=== PATIENT | female | born 1985 | race Caucasian/White ===

== ENCOUNTER 2024-02-14 13:31 | Emergency (ER) | payer OTHER, SELFPAY ==
--- NOTE | ~2024-02-14 | XR_ITS ---
EXAMINATION: [id number] DATE: 02/14/2024 14:00 INDICATION: Left lower anterior chest pain. TECHNIQUE: 2 views of the left ribs on 3 radiographs were obtained. COMPARISON: None. FINDINGS: There is no left-sided pneumonia, pleural effusion, or pneumothorax. The heart size is norm al. There is a fracture of left 11th rib. IMPRESSION: 1. Left 11th rib fracture. Reviewed, dictated and finalized at location A. IMPRESSION: 1. Left 11th rib fracture.
[2024-02-14 13:39] VITALS: BP 152/91; PULSE 92; RESP 16; TEMP 37.2; O2SAT 97
--- NOTE | 2024-02-14 13:49 | ED.GENADULT ---
HPI - General Adult General Chief complaint: Abdominal Pain Stated complaint: Left Flank Pain /Rib Time Seen by Provider: 02/14/24 13:49 Mode of arrival: ambulatory Limitations: no limitations History of Present Illness HPI narrative: 38-year-old female presents with concern for left rib pain. She reports her boyfriend gave her a tight hug and she felt a pop. She reports little pain with rest, pain with deep breathing or moving in certain ways. MD complaint: Rib pain Related Data Home Medications Medication Instructions Recorded Confirmed No Home Medications 02/14/24 02/14/24 Allergies Allergy/AdvReac Type Severity Reaction Status Date / Time metformin AdvReac Nausea Verified 02/14/24 13:51 Review of Systems Review of Systems: CONSTITUTIONAL: Denies malaise, chills, sweats, or fever. EYES: Denies visual changes, redness, or discharge. CARDIOVASCULAR: Denies chest pain, palpitations, or edema. RESPIRATORY: Denies cough or dyspnea. GASTROINTESTINAL: Denies abdominal pain. SKIN: Denies bruising, swelling, redness MUSCULOSKELETAL: Reports left anterior rib pain All systems reviewed & are unremarkable except as noted in HPI and below PMFSH Comments At time of signature, agree with nursing past medical, surgical, social and family history. There is no relevant family history pertinent to the presenting complaint Exam Narrative: GENERAL: Well-appearing, well-nourished, and in no acute distress. HEAD: Normocephalic, atraumatic. EYES: PERRLA, sclera clear ENT: Nares clear. Mucous membranes moist. NECK: Supple. CHEST: No respiratory distress. Clear to auscultation. No bony deformities, no asymmetry. Speaks in full sentences. HEART: Regular rate and rhythm. SKIN: Warm, dry, no visible rash. NEURO: Alert and oriented x3. PSYCH: Normal mood and affect Course Course Emergency Course: Patient is aware of diagnosis, understands and agrees to treatment plan. Anticipatory guidance given. Patient agrees to follow-up as directed and is aware of reasons to seek care at the emergency department. Portions of this record may have been created with voice recognition software Level of Care: Express Care Visit Vital Signs Vital signs: Vital Signs Temperature 99 F 02/14/24 13:39 Pulse Rate 92 02/14/24 13:39 Respiratory Rate 16 02/14/24 13:39 Blood Pressure 152/91 H 02/14/24 13:39 Pulse Oximetry 97 02/14/24 13:39 Oxygen Delivery Room Air 02/14/24 13:39 Temperature 99 F 02/14/24 13:39 Pulse Rate 92 02/14/24 13:39 Respiratory Rate 16 02/14/24 13:39 Blood Pressure 152/91 H 02/14/24 13:39 Pulse Oximetry 97 02/14/24 13:39 Oxygen Delivery Room Air 02/14/24 13:39 Reviewed. Medical Decision Making MDM Narrative Medical decision making narrative: The patient was evaluated by myself in the emergency department. History is obtained from patient who is an independent historian and physical exam was performed.? Available medical records were reviewed at this time. ? Exam findings and imaging show no acute concerns or changes; patient is non-toxic appearing and is in no distress. Patient is appropriate for outpatient treatment and follow-up. ? I have evaluated and discussed social determinants of health with the patient that could potentially impact subsequent diagnosis and treatment plans. ? Differential diagnosis and treatment plan were discussed with the patient. Patient agrees with discussion and after shared medical decision making agrees with plan of care. All questions were answered to the patient's satisfaction. Vital Signs Vital Signs: Vital Signs Temperature 99 F 02/14/24 13:39 Pulse Rate 92 02/14/24 13:39 Respiratory Rate 16 02/14/24 13:39 Blood Pressure 152/91 H 02/14/24 13:39 Pulse Oximetry 97 02/14/24 13:39 Oxygen Delivery Room Air 02/14/24 13:39 Temperature 99 F 02/14/24 13:39 Pulse Rate 92 02/14/24 13:39 Respiratory Rate 1
== END 2024-02-14 14:15 | disposition home or self-care (01) ==
PROVIDERS: Emergency Provider Nurse Practitioner
DX: S22.32XA Fracture of one rib, left side, initial encounter for closed fracture (principal); T14.90XA Injury, unspecified, initial encounter
CPT/HCPCS: 71101; 99203; G0463

== ENCOUNTER 2024-08-16 11:53 | Emergency (ER) | payer OTHER, SELFPAY ==
[2024-08-16 12:07] VITALS: BP 131/80; PULSE 87; RESP 18; TEMP 37; O2SAT 97
--- NOTE | 2024-08-16 12:08 | ED_ITS ---
HPI - Skin/Abscess/Foreign Bdy General Chief complaint: Skin/Abscess/Foreign Body Stated complaint: needs 2 boils looked at(rt shoulder)(left butt) Time Seen by Provider: 08/16/24 12:30 Source: patient and RN notes reviewed Mode of arrival: ambulatory Limitations: dementia History of Present Illness HPI narrative: 39 year old female presents with concern for abscesses. She reports history of frequent abscesses, hydradenitis superativa. She reports she has an abscess on her buttock that is draining. She reports she has 1 on her right shoulder that is not draining. She denies fever, aches, chills, sweats. MD complaint: other (Redness) Related Data Home Medications ?Medication ?Instructions ?Recorded ?Confirmed ?Last Taken ?Type albuterol sulfate 90 mcg/actuation inhalation 08/16/24 Unknown History aerosol inhaler famotidine 08/16/24 Unknown History fluticasone 100 mcg-salmeterol 50 inhalation 08/16/24 Unknown History mcg/dose blistr powdr for inhalation (Advair Diskus) Allergies Allergy/AdvReac Type Severity Reaction Status Date / Time metformin AdvReac Nausea Verified 08/16/24 12:15 Review of Systems Review of Systems: CONSTITUTIONAL: Denies malaise, chills, sweats, or fever. EYES: Denies redness, or discharge. ENT: Denies rhinorrhea, congestion, swollen lips, swollen tongue CARDIOVASCULAR: Denies chest pain, palpitations, or edema. RESPIRATORY: Denies cough or dyspnea. GASTROINTESTINAL: Denies abdominal pain, nausea, vomiting SKIN: Reports a draining abscess on her right buttock and not draining abscess on her right shoulder. Denies vesicles, bullae, numbness, pain beyond proportion MUSCULOSKELETAL: Denies joint pain or myalgia. NEUROLOGIC: Denies headache. All systems reviewed & are unremarkable except as noted in HPI and below PMFSH Comments At time of signature, agree with nursing past medical, surgical, social and family history. There is no relevant family history pertinent to the presenting complaint Exam Narrative: GENERAL: Well-appearing, well-nourished, and in no acute distress. HEAD: Normocephalic, atraumatic. EYES: PERRLA, conjunctivae clear ENT: Mucous membranes moist. NECK: Supple. No lymphadenopathy CHEST: Clear to auscultation. No respiratory distress. HEART: Regular rate and rhythm. SKIN: Warm, dry. Approximately 5 x 3 cm raised fluctuant area of Erythema, induration, tenderness, warmth with sharp margins noted to the right shoulder. No vesicles, bullae, necrosis, ecchymosis, crepitus noted. NEURO: Alert and oriented x3. PSYCH: Normal mood and affect Course Course Emergency Course: Patient is aware of diagnosis, understands and agrees to treatment plan. Anticipatory guidance given. Patient agrees to follow-up as directed and is aware of reasons to seek care at the emergency department. Portions of this record may have been created with voice recognition software Level of Care: Express Care Visit Vital Signs Vital signs: Vital Signs Temperature 98.6 F 08/16/24 12:07 Pulse Rate 87 08/16/24 12:07 Respiratory Rate 18 08/16/24 12:07 Blood Pressure 131/80 08/16/24 12:07 Pulse Oximetry 97 08/16/24 12:07 Oxygen Delivery Room Air 08/16/24 12:07 Temperature 98.6 F 08/16/24 12:07 Pulse Rate 87 08/16/24 12:07 Respiratory Rate 18 08/16/24 12:07 Blood Pressure 131/80 08/16/24 12:07 Pulse Oximetry 97 08/16/24 12:07 Oxygen Delivery Room Air 08/16/24 12:07 Reviewed. Procedures Abscess I/D back: Date of Incision: 08/16/24 Time of Incision: 12:45 Side (if applicable): right Local Anesthetic: lidocaine 2% Amount of anesthesia used (mL): 2 Technique: incised with #11 blade Amount of fluid expressed (mL): 10 Irrigation: Yes Packing used?: none I&D Results: Pus and Other (White matter) MDM - Skin/Abscess/Foreign Bdy MDM Narrative Medical decision making narrative: I evaluated this in the [facility]. History is obtained from patient who is an independent historian and physical exam was performed.? Available medical records were reviewed. ? Exam findings and relevant testing show no acute concerns or changes; patient is non-toxic appearing and is in no distress. No risk factors or findings concerning for epidural abscess, diskitis, vertebral osteomyelitis, cord compression, cauda equina, vertebral fracture or bone malignancy, AAA, or pyelonephritis. Patient instructed to consider further imaging and workup through their primary care physician as an outpatient if symptoms persist. Does not appear at this time to be erythema multiforme, bullous, SJS, TEN; no evidence at this time to suggest RMSF, NSTI, endocarditis or Lyme disease; patient looks well, nontoxic and is tolerating oral intake; no neurologic signs or symptoms; no headache, photophobia or neck pain; afebrile.? Patient does not have history of of penetrating trauma, laceration, blunt trauma, recent surgery, immunosuppression, malignancy, obesity, alcoholism, corticosteroid use.? Discussed the importance of follow-up, patient agrees; question, cellulitis versus necrotizing soft tissue infection versus abscess.?? Patient is appropriate for outpatient treatment and follow-up. Critical Care Time Critical Care Time Critical Care Time: No Discharge Plan Discharge Clinical Impression: Abscess Patient Disposition: Home, Self-Care Condition: Stable Instructions: Abscess Incision and Drainage (DC) Additional Instructions: You have had an abscess drained at [facility]. You may shower - let the soapy water clean your wound, do not scrub it. Keep your wound covered to prevent transmission of infection to other people. Follow up with your primary care physician or in the Emergency Department in 2-3 days for a wound check. Go to the Emergency Department immediately if you develop any of the following symptoms: Fevers, Increased redness or swelling around where your abscess was, Increased pain, or Generalized weakness or vomiting Please Keep the wound covered and dry. Once a day: wash the wound with soap/water, apply bacitracin or neosporin and re-cover the wound. If you have any worsening of symptoms, including severe pain/swelling/numbness/changes in sensation/weakness, redness which expands more than it is right now or any other concerns please return to the ED immediately. Patient Language: Bots[place] Prescriptions: New amoxicillin-pot clavulanate 875-125 mg tablet 1 tablet PO Q12H 10 Days Qty: 20 0RF No Action albuterol sulfate 90 mcg/actuation HFA aerosol inhaler INHALATION fluticasone propion-salmeterol [Advair Diskus] 100-50 mcg/dose blister with device INHALATION famotidine Follow-up/Referrals: PHYSICIAN NOT ON STAFF,NONSTAFF [Primary Care Provider] - Stand Alone Forms: Work/School Release IP Time of Disposition: 13:01
--- OUTSIDE RECORDS SUMMARY | 2024-08-16 12:20 | XMS_ITS | Referral Summary ---
Author Organization [address] Address [address] [place] [id number] Care Team Providers Care Account Executive Sales Representative Name Role Phone Jesús Perez MD Primary Care Provi dina Encounters Date Type Department Care Team Description 07/23/2024 10:00 AM [employer] Clinical Support [facility] Primary Care at [address] [place] [address] Bilateral impacted cerumen (Primary Dx) 07/09/2024 11:30 AM [employer] Office Visit [facility] Primary Care at [address] [place] [address] Jesús Perez MD Elevated blood pressure reading without diagnosis of hypertension (Primary Dx); Bilateral impacted cerumen; Need for tetanus booster; Need for vaccination from Last 3 Months Allergies Active Allergy Reactions Criticality Noted Date Comments Metformin Nausea only Low 01/03/2024 Medications famotidine (PEPCID) 20 mg tablet Take 1 tablet (20 mg total) by mouth 2 (two) times a day Active fluticasone propion-salmeter oL (ADVAIR DISKUS) 100-50 mcg/dose diskus inhalerIndicatio ns:Asthma, unspecified asthma severity, unspecified whether complicated, unspecified whether persistent Inhale 1 puff 2 (two) times a day Rinse mouth with water after use. Do not swallow. 60 each 1 Active albuterol HFA (PROVENTIL HFA,VENTOLIN HFA,PROAIR HFA) 90 mcg/actuation inhalerIndicatio ns:Acute Asthma Attack Inhale 2 puffs every 6 (six) hours as needed for wheezing 1 each 2 Active Active Problems Problem Noted Date Diagnosed Date Bilateral impacted cerumen 07/09/2024 Need for tetanus booster 07/09/2024 Elevated blood pressure read ing without diagnosis of hypertension 05/15/2024 Asthma 04/15/2024 Chronic bronchitis 03/11/2024 Tobacco abuse 03/11/2024 Closed fracture of one rib of left side 03/11/20 Gastroesophageal reflux disease without esophagi tis 03/11/2024 Shortness of breath 03/11/2024 Routine adult health maintenance 03/07/2024 Immunizations Immunization Administration Dates Next Due Influenza, Unspecified 07/09/2024(Deferr ed: Patient Refused),03/28/2023(Deferred: Patient Refused),03/14/2023(Deferred: Patient Refused) Tdap 07/09/2024 Social History Tobacco Use Types Packs/Day Years Used Date Smoking Tobacco: Every Day Cigarettes Tobacco Cessation:Ready to Q uit: Not Asked; Counseling Given: Not Answered PHQ-2 Answer Date Recorded PHQ-2 Total Score (If total score is 3 or more points, staff should administer the PHQ-9) 0 05/28/2024 PHQ-9 Answer Date Recorded PHQ-9 Total Score 0 05/28/2024 Comments Unknown Sex and Gender Information Value Date Recorded Sex Assigned at Not on file Legal Sex Female 9:16 PM CDT Gender Identity Female 02/06/2024 11:47 AM CDT Sexual Orientation Straight 02/06/2024 11 :47 AM CDT Last Filed Vital Signs Vital Sign Reading Time Taken Comments Blood Pressure 122/74 07/09/2024 11:23 AM [employer] Pulse 82 07/09/2024 11:23 AM [employer] Temperature 36.6 C (97.9 F) 07/09/2024 11:23 AM [employer] Respiratory Rate 18 01/03/2024 9:05 AM CDT Oxygen Saturation 94% 07/09/2024 11:23 AM [employer] Inhaled Oxygen Concentration - - Weight 58.5 kg (129 lb) 07/09/2024 11:23 AM [employer] Height 162.6 cm (5' 4 ) 07/09/2024 11:23 AM [employer] Body Mass Index 22.14 07/09/2024 11:23 AM [employer] Plan of Treatment Not on file Insurance [facility] Care Teams Account Executive Sales Representative Relationship Specialty Start Date End Date Jesús Perez MD [address] [address] PCP - General Family Practice 03/11/24
--- OUTSIDE RECORDS SUMMARY | 2024-08-16 12:20 | XMS_ITS | Clinical Summary ---
Author Organization [facility] Address [address] [place] [id number] Care Team Providers Care Foreign Collection Clerk Name Role Phone Jesús Perez MD Primary Care Provi dina Allergies Active Allergy Reactions Criticality Noted Date [...] use. Do not swallow. 60 each 1 4 Active albuterol HFA (PROVENTIL HFA,VENTOLIN HFA,PROAIR HFA) 90 mcg/actuation inhalerIndicatio ns:Acute Asthma Attack Inhale 2 puffs every 6 (six) hours as needed for wheezing 1 each 2 5 Active Active Problems Problem Noted Date Diagnosed Date Bilateral impacted cerumen 07/09/2024 Need for tetanus booster 07/09/2024 Elevated blood pressure read ing without diagnosis of hypertension 05/15/2024 Asthma 04/15/2024 Chronic bronchitis 03/11/2024 Tobacco abuse 03/11/2024 Closed fracture of one rib of left side 03/11/20 24 Gastroesophageal reflux disease without esophagi tis 03/11/2024 Shortness of breath 03/11/2024 Routine adult health maintenance 03/07/2024 Encounters Date Type Department Care Team Description 07/23/2024 10:00 AM APPLICATIONS TESTER Clinical Support [facility] Primary Care at [address] [place] [phone] Bilateral impacted cerumen (Primary Dx) 07/09/2024 11:30 AM APPLICATIONS TESTER Office Visit [facility] Primary Care at [address] [phone] Jesús Perez MD Elevated blood pressure reading without diagnosis of hypertension (Primary Dx); Bilateral impacted cerumen; Need for tetanus booster; Need for vaccination from Last 3 Months Immunizations Immunization Administration Dates Next Due Influenza, Unspecified 07/09/2024(Deferr ed: Patient Refused),03/28/2023(Deferred: Patient Refused),03/14/2023(Deferred: Patient Refused) Tdap 07/09/2024 Surgical History Surgery Date Site/Laterality Comments CYSTECTOMY Social History Tobacco Use Types Packs/Day Years [...] Orientation Straight 02/06/2024 11 :47 AM CDT Obstetrics History Last Filed Vital Signs Vital Sign Reading Time Taken Comments Blood Pressure 122/74 07/09/2024 11:23 AM APPLICATIONS TESTER Pulse 82 07/09/2024 11:23 AM APPLICATIONS TESTER Temperature 36.6 C (97.9 F) 07/09/2024 11:23 AM APPLICATIONS TESTER Respiratory Rate 18 01/03/2024 9:05 AM CDT Oxygen Saturation 94% 07/09/2024 11:23 AM APPLICATIONS TESTER Inhaled Oxygen Concentration - - Weight 58.5 kg (129 lb) 07/09/2024 11:23 AM APPLICATIONS TESTER Height 162.6 cm (5' 4 ) 07/09/2024 11:23 AM APPLICATIONS TESTER Body Mass Index 22.14 07/09/2024 11:23 AM APPLICATIONS TESTER Plan of Treatment Health Maintenance Due Date Last Done Comments Breast Cancer Screening-Mammogram 1984 Cervical Cancer Screening 1984 Hepatitis C Screening 1984 Varicella Vaccines (1 of 2 - 13+ 2-dose series) 02/25/1997 Hepatitis B Screening 02/25/2002 Regular Well Visit/Exam 18-64 02/25/2002 Pneumococcal vaccine <65 (1 of 2 - PCV) 02/25/2003 Influenza Vaccine (#1) 2024 Depression Screening 05/15/2025 05/15/2024, 03/11/2024 DTaP/Tdap/Td Vaccine (2 - Td or Tdap) 07/09/2034 07/09/2024 HPV Vaccines Aged Out No longer eligi ble based on patient's age to complete this topic Insurance [facility] Care Teams Foreign Collection Clerk Relationship Specialty Start Date End Date Jesús Perez MD [address] [address] PCP - General Family Practice 03/11/24
--- OUTSIDE RECORDS SUMMARY | 2024-08-16 12:20 | XMS_ITS | Clinical Summary ---
Author Organization [facility] Address [address] [place] [address] Phone Care Team Providers Care Fiberglass Laminator Name Role Phone Provider, None Primary Care Provider Unavailabl e Allergies Active Allergy Reactions Criticality Noted Date Comments Metformin Nausea 07/03/2024 Medications No known medications Encounters Date Type Department Care Team Description 07/03/2024 8:59 AM APPEALS OFFICER - 07/03/2024 11:22 AM APPEALS OFFICER Emergency [facility] Emergency [address] [place] [address] Bethel Richard, ASHLEY Acute exacerbation of chronic low back pain Discharge Disposition: Discharged to home or Selfcare 07/03/2024 Travel from Last 3 Months Social History Tobacco Use Types Packs/Day Years Used Date Smoking Tobacco: Never Smokeless Tobacco: Never Tobacco Cessation:Counseling Given: Not Answered Comments No Sex and Gender Information Value Date Recorded Sex Assigned at Not on file Legal Sex Female 7:15 AM CDT Gender Identity Not on file Sexual Orientation Not on file Last Filed Vital Signs Vital Sign Reading Time Taken Comments Blood Pressure 193/95 07/03/2024 8:59 AM APPEALS OFFICER Pulse 92 07/03/2024 8:56 AM APPEALS OFFICER Temperature 35.9 C (96.7 F) 07/03/2024 8:56 AM APPEALS OFFICER Respiratory Rate 16 07/03/2024 8:56 AM APPEALS OFFICER Oxygen Saturation 100% 07/03/2024 8:56 AM APPEALS OFFICER Inhaled Oxygen Concentration - - Weight 59 kg (130 lb) 07/03/2024 8:56 AM APPEALS OFFICER Height 162.6 cm (5' 4 ) 07/03/2024 8:56 AM APPEALS OFFICER Body Mass Index 22.31 07/03/2024 8:56 AM APPEALS OFFICER Plan of Treatment Health Maintenance Due Date Last Done Comments Hepatitis C Virus (HCV) Screening 1985 Mammogram 1985 TdaP Immunization 1985 Hepatitis B Immunization (1 of 3 - 19+ 3-dose series) 02/25/2003 Pap Smear 02/25/2005 Cervical Cancer Screening (CCS) 02/25/2014 HPV/Cotest 02/25/2014 Influenza Immunization (#1) 2024 SARS-COV-2 Immunization ( season) 2024 Discussion re Starting/Frequ ency of Mammograms 2024 Respiratory Syncytial Virus (RSV) Immunization (Adult) (1 - 1-dose 75+ series) 02/25/2059 Meningococcal Immunization (ACWY) Aged Out No longer eligible based on patient's age to complete this topic Pneumococcal Immunization Combined Aged Out No longer eligible based on patient's age to complete this topic Rotavirus Immunization Aged Out No lo nger eligible based on patient's age to complete this topic Procedures Procedure Name Priority Date/Time Associated Diagnosis Comments XR LUMBAR SPINE 2 OR 3 VIEWS STAT 07/03/2024 10:33 AM APPEALS OFFICER XR HIP 2 VIEWS UNILATERAL RIGHT STAT 07/03/2024 10:28 AM APPEALS OFFICER from Last 3 Months Results * XR LUMBAR SPINE 2 OR 3 VIEWS (07/03/2024 10:33 AM APPEALS OFFICER) Anatomical Region Laterality Modality Spine, L-spine N/A Digital Radiogra phy 07/03/2024 11:1 3 AM APPEALS OFFICER Impressions 07/03/2024 11:15 AM APPEALS OFFICER IMPRESSION: Mild multilevel lumbar spondylosis without definite evidence of acute fracture or subluxation. Narrative 07/03/2024 11:15 AM APPEALS OFFICER EXAM DESCRIPTION: XR LUMBAR SPINE 2 OR 3 VIEWS REASON FOR STUDY: acute on chronic right sciatica- midline and right low back pain radiating into right down to ankle x 7 years worse x 2-3 days- no injury TECHNIQUE: 3 radiographic view(s) of the lumbar spine. COMPARISON: None FINDINGS: There is no definite evidence of an acute fracture or subluxation involving the lumbar spine. There is a minimal to mild levoscoliotic curvature lumbar spine centered at L4. There are mild multilevel degenerative changes lumbar spine with mild disc space narrowing, minimal endplate osteophytosis, and mild facet arthropathy. The are mild degenerative changes bilateral sacroiliac joints with mild joint space narrowing and mild sclerosis. There are a few phleboliths overlie the pelvis. THIS IS AN ELECTRONICALLY VERIFIED FINAL REPORT 07/03/2024 11:13 AM - Electronically signed by Alisa Guerin D.O. PS: PS Report ID: [id number] Reading Location: [id number] Procedure Note Alisa Guerin DO - 07/03/2024 EXAM DESCRIPTION: XR LUMBAR SPINE 2 OR 3 VIEWS REASON FOR STUDY: acute on chronic right sciatica- midline and right low back pain radiating into right down to ankle x 7 years worse x 2-3 days- no injury TECHNIQUE: 3 radiographic view(s) of the lumbar spine. COMPARISON: None FINDINGS: There is no definite evidence of an acute fracture or subluxation involving the lumbar spine. There is a minimal to mild levoscoliotic curvature lumbar spine centered at L4. There are mild multilevel degenerative changes lumbar spine with mild disc space narrowing, minimal endplate osteophytosis, and mild facet arthropathy. The are mild degenerative changes bilateral sacroiliac joints with mild joint space narrowing and mild sclerosis. There are a few phleboliths overlie the pelvis. THIS IS AN ELECTRONICALLY VERIFIED FINAL REPORT 07/03/2024 11:13 AM - Electronically signed by Alisa Gueirn D.O. PS: PS Report ID: [id number] Reading Location: [id number] IMPRESSION: Mild multilevel lumbar spondylosis without definite evidence of acute fracture or subluxation. Bethel Richard [facility] IMG DIAGNOSTIC ORDER TOÑO Final Result * XR HIP 2 VIEWS UNILATERAL RIGHT (07/03/2024 10:28 AM APPEALS OFFICER) Anatomical Region Laterality Modality LOWER EXTREMITY, hip Right Digital Rad iography 07/03/2024 11:1 1 AM APPEALS OFFICER Impressions 07/03/2024 11:13 AM APPEALS OFFICER IMPRESSION: Mild degenerative changes of the right hip without definite evidence of acute displaced fracture or dislocation. Narrative 07/03/2024 11:13 AM APPEALS OFFICER EXAM DESCRIPTION: XR HIP 2 VIEWS UNILATERAL RIGHT REASON FOR STUDY: chronic right hip pain without injury x 7 years worse x 2-3 days- right hip pain and right low back pain radating into right leg to ankle- Hip pain worse with bending and lifting, coughing, moving from prolonged sitting to standing position, and when standing in one spot. TECHNIQUE: 2 radiographic view(s) of the right hip . COMPARISON: None FINDINGS: There is no definite evidence acute displaced fracture or dislocation the right hip. There are mild degenerative changes right hip with joint space narrowing and mild sclerosis. There are mild degenerative changes of the sacroiliac joint with joint space narrowing and minimal sclerosis. There are few phleboliths noted overlying the pelvis. THIS IS AN ELECTRONICALLY VERIFIED FINAL REPORT 07/03/2024 11:11 AM - Electronically signed by Alisa Guerin D.O. PS: GOSIA Report ID: [id number] Reading Location: [id number] Procedure Note Alisa Guerin DO - 07/03/2024 EXAM DESCRIPTION: XR HIP 2 VIEWS UNILATERAL RIGHT REASON FOR STUDY: chronic right hip pain without injury x 7 years worse x 2-3 days- right hip pain and right low back pain radating into right leg to ankle- Hip pain worse with bending and lifting, coughing, moving from prolonged sitting to standing position, and when standing in one spot. TECHNIQUE: 2 radiographic view(s) of the right hip . COMPARISON: None FINDINGS: There is no definite evidence acute displaced fracture or dislocation the right hip. There are mild degenerative changes right hip with joint space narrowing and mild sclerosis. There are mild degenerative changes of the sacroiliac joint with joint space narrowing and minimal sclerosis. There are few phleboliths noted overlying the pelvis. THIS IS AN ELECTRONICALLY VERIFIED FINAL REPORT 07/03/2024 11:11 AM - Electronically signed by Alisa Guerin D.O. PS: GOSIA Report ID: [id number] Reading Location: [id number] IMPRESSION: Mild degenerative changes of the right hip without definite evidence of acute displaced fracture or dislocation. Bethel Richard PAC IMG DIAGNOSTIC ORDER TOÑO Final Result from Last 3 Months Insurance MEDICAID [place] Care Teams Fiberglass Laminator Relationship Specialty Start Date End Date Provider, None [place] PCP - General 08/23/23
== END 2024-08-16 13:04 | disposition home or self-care (01) ==
PROVIDERS: Emergency Provider Nurse Practitioner
DX: L02.212 Cutaneous abscess of back [any part, except buttock and flank] (principal); I10 Essential (primary) hypertension; K21.9 Gastro-esophageal reflux disease without esophagitis; E28.2 Polycystic ovarian syndrome
CPT/HCPCS: 10060; 99213; G0463; J2003

== ENCOUNTER 2024-09-26 10:11 | Emergency (ER) | payer OTHER, SELFPAY ==
--- NOTE | ~2024-09-26 | XR_ITS ---
XR chest 2V Ordering provider: Kayla Pool NP History: 39 years Female with . cough and dyspnea . Comparison: None. FINDINGS: MEDIASTINUM: The cardiac silhouette is not enlarged. LUNGS: No infiltrates, effusions or pneumothorax. OTHER: No free air under the diaphragm. IMPRESSION: No acute cardiopulmonary pathology. Reviewed, dictated and finalized at location A.
[2024-09-26 10:18] VITALS: PULSE 85; RESP 16; TEMP 36.4; O2SAT 100
--- NOTE | 2024-09-26 10:27 | ED_ITS ---
HPI - URI/Sore Throat General Chief Complaint: Upper Respiratory Infection Stated Complaint: coughing/sore throat/bodyaches Time Seen by Provider: 09/26/24 10:28 Source: patient Mode of arrival: ambulatory Limitations: no limitations History of Present Illness HPI Narrative: 39 year old female who presents to express care wit cough for the past week with wheezing and some shortness of breath for the past 2 days. Patient reports that she had a COVID test 2--3 days ago which was negative. She states that she has never been diagnosed with asthma reports that she has been told she has reactive airway disease. Patient reports that she does use tobacco daily 1 to ppd. Patient reports that she has been using Albuterol and Advair inhalers as prescribed. Patient reports no known fevers chills or sweats. MD elicited complaint: cough and other (wheezing and shortness of breath) Pertinent past history: other (Tobacco abuse) Onset (ago): week(s) (1 week cough and 2 days of wheezing and dyspnea) Consistency: constant Severity: moderate Able to tolerate fluids by mouth: No Treatments prior to arrival: other (inhalers Albuterol and Advair) Related Data Home Medications ?Medication ?Instructions ?Recorded ?Confirmed ?Last Taken ?Type albuterol sulfate 90 mcg/actuation inhalation 08/16/24 Unknown History aerosol inhaler famotidine 08/16/24 Unknown History Allergies Allergy/AdvReac Type Severity Reaction Status Date / Time metformin AdvReac Nausea Verified 09/26/24 10:34 Review of Systems Review of Systems: CONSTITUTIONAL: Reports some malaise, no chills, sweats, or fever. EYES: Denies visual changes, redness, or discharge. ENT: Reports rhinorrhea, congestion, no sinus pain, no otalgia and some sore throat. CARDIOVASCULAR: Denies chest pain, palpitations, or edema. RESPIRATORY: Reports cough with wheezing and states feels some dyspnea? GASTROINTESTINAL: Denies abdominal pain, nausea, vomiting, diarrhea SKIN: Denies rash or itching. MUSCULOSKELETAL: Denies myalgia. NEUROLOGIC: Denies headache. All systems reviewed & are unremarkable except as noted in HPI and below PMFSH Past Medical History Medical History (Updated 09/27/24 @ 13:25 by Kayla Pool NP) Tobacco abuse Hidradenitis PCOS (polycystic ovarian syndrome) Bronchitis Hypertension Social History Social History (Updated 09/27/24 @ 13:26 by Kayla Pool NP) Smoking packs per day: 1 Smoking cigarettes per day: 20.0 Smoking status: Current every day smoker Tobacco type: cigarettes Alcohol intake: current Alcohol use details: social Comments At time of signature, agree with nursing past medical, surgical, social and family history. There is no relevant family history pertinent to the presenting complaint Exam Narrative: GENERAL: Well-appearing, well-nourished, and in no acute distress. HEAD: Normocephalic EYES: PERRLA, conjunctivae clear ENT: Nares clear, turbinates edematous and erythematous, clear discharge. Mucous membranes moist. TM pearly ordonez with dull light reflex bilaterally; no tragal tenderness. Oropharynx erythematous without lesions. Tonsils not enlarged and without exudate, no drooling, no hoarseness, no trismus, uvula midline.some post nasal drainage NECK: Supple. No lymphadenopathy CHEST: Decreased with scattered wheezing, breath sounds equal.+ wheezing, no rhonchi, rales, or stridor. No respiratory distress, speaks in full sentences. dry cough SAO2 100% no tachypnea, reports some feelings of dyspnea, no reactions HEART: Regular rate and rhythm. No murmur heard. SKIN: Warm, dry, no rash. NEURO: Alert and oriented x3. PSYCH: Normal mood and affect Course Course Emergency Course: Patient is aware of diagnosis, understands and agrees to treatment plan.? Anticipatory guidance given.? Patient agrees to follow-up as directed and is aware of reasons to seek care at the emergency department. Portions of this record may have been created with voice recognition software Level of Care: Express Care Visit Vital Signs Vital signs: Vital Signs Temperature 36.4 C 09/26/24 10:18 Pulse Rate 85 09/26/24 10:18 Respiratory Rate 16 09/26/24 10:18 Pulse Oximetry 100 09/26/24 10:18 Oxygen Delivery Room Air 09/26/24 10:18 Temperature 36.4 C 09/26/24 10:18 Pulse Rate 85 09/26/24 10:18 Respiratory Rate 16 09/26/24 10:18 Blood Pressure 162/92 H 09/26/24 11:08 Pulse Oximetry 100 09/26/24 10:18 Oxygen Delivery Room Air 09/26/24 10:18 Reviewed MDM - URI/Sore Throat MDM Narrative Medical decision making narrative: Differential diagnosis considered: Loera virus, strep pharyngitis, allergic rhinitis, upper respiratory tract infection, sinusitis, rhinosinusitis, nasopharyngitis. viral pharyngitis, otitis media, otitis externa, pneumonia, bronchitis, viral cough syndrome, viral syndrome, and influenza.? Exam findings show no acute concerns or changes; patient is non-toxic appearing and is in no distress.? Patient is appropriate for outpatient treatment and follow-up. Differential Diagnosis Differential diagnosis: Likely upper respiratory infection, viral infection, bronchitis and other (reactive airway disease, tobacco abuse) Medical Records Attestation: I reviewed the patient's medical records. Lab Data Attestation: I reviewed the patient's lab results. Imaging Data Attestation: I personally reviewed and interpreted this imaging study as follows: My impression: no acute cardiopulmonary pathology Radiologist's impression: [place] [address] XRay Report Signed Patient: Margy Jolly : 1985 MR#: [id number] Age: 39 Acct:[id number] Loc: [facility] ADM Date: 09/26/24Attending Dr: Ordering Physician: Kayla Pool APRN Date of Service: 09/26/24 Procedure(s): XR chest 2V Accession Number(s): [id number] cc: Kayla Pool APRN; UNKNOWN,DOCTOR~ XR chest 2V Ordering provider: Kayla Pool NP History: 39 years Female with . cough and dyspnea . Comparison: None. FINDINGS: MEDIASTINUM: The cardiac silhouette is not enlarged. LUNGS: No infiltrates, effusions or pneumothorax. OTHER: No free air under the diaphragm. IMPRESSION: No acute cardiopulmonary pathology. Reviewed, dictated and finalized at location A. Please be advised this is a medical document. It is intended for [id number] communication. It is written in medical language and may contain unfamiliar abbreviations or verbiage. Medical documents are intended to carry relevant information, facts as evident, and the clinical opinion of the practitioner at the time of the encounter. This report may have been done utilizing a voice recognition system. Attempts have been made to correct errors. However, there may be uncorrected grammatical, spelling, and recognition errors present. The file time of this note does not necessarily represent the time of service. Dictated By: Beto Geronimo MD 09/26/24 1052 Signed By: <Electronically signed by Beto Geronimo MD in OV> 09/26/24 1053 Critical Care Time Critical Care Time Critical Care Time: No Discharge Plan Discharge Clinical Impression: Bronchitis Patient Disposition: Home Condition: Stable Instructions: Antibiotic Form, Acute Bronchitis (ED) Additional Instructions: Increase fluids especially juices and water Vtqq-gti-[id number] cough and cold medicine of your choice for your symptoms Zyrtec, Claritin or Jessica daily and include Coricidin decongestant Continue your inhaler/nebulizer as directed Steroids as directed--take with food heat to the face 20-30 minutes 4-6 times a day for pain Salt water gargles, throat lozenges or throat sprays as desired Antibiotic as directed--finished the medication If your symptoms persist, change or worsen significantly before you can contact your personal physician then please, without delay, go to the emergency department for further evaluation. Follow-up with PCP in 7-10 days or sooner if needed Follow up with PCP soon in regards to your blood pressure which is elevated above threshold for referral. Blood pressure above 120/80 may indicate pre- hypertension. Quit smoking Patient Language: Irish Prescriptions: New azithromycin 250 mg tablet See Rx Instructions .ROUTE .COMPLEX Qty: 6 0RF Rx Instructions: For 250 mg dose pack: take 500 mg today (day 1), then 250 mg for 4 days (days 2-5) prednisone 20 mg tablet 40 mg PO DAILY 5 Days Qty: 10 0RF No Action albuterol sulfate 90 mcg/actuation HFA aerosol inhaler INHALATION famotidine Follow-up/Referrals: UNKNOWN,DOCTOR [Primary Care Provider] - Time of Disposition: 11:09 Quality [place] Coma Scale Eyes: Open Verbal: Oriented and Alert Motor: Follows Commands Joel Coma Total Score: 15
[2024-09-26 10:32] VITALS: BP 180/98
[2024-09-26 11:08] VITALS: BP 162/92
--- OUTSIDE RECORDS SUMMARY | 2024-09-26 11:22 | XMS_ITS | Clinical Summary ---
Author Organization [address] Address [address] [place] [phone] Care Team Providers Care Electric Milkers Installer Name Role Phone Jesús Perez MD Primary [...] for wheezing 1 each 2 5 Active mupirocin (BACTROBAN) 2 % ointmentIndicati ons:Abscess Apply topically 3 (three) times a day for 10 days 22 g 5 09/16/19 25 sulfamethoxazole -trimethoprim (BACTRIM DS) 800-160 mg per tabletIndication s:Abscess Take 1 tablet by mouth 2 (two) times a day for 7 days 14 tablet 5 09/13/19 25 Active Problems Problem Noted Date Diagnosed Date [...] Encounters Date Type Department Care Team Description 09/10/2024 Patient Self-Triage [facility] [address] [place] [address] Mychart, Generic Provider 09/06/2024 Results Follow-Up [facility] at [address] [place] [address] Colleen Rodriges NP 09/05/2024 12:36 PM CDT - 09/05/2024 11:59 PM CDT Hospital Encounter [address] [address] Abscess Discharge Disposition: Discharge to home or self care 09/05/2024 12:15 PM CDT Office Visit [facility] at [address] [place] [address] Colleen Rodriges, SHANNAN Abscess (Primary Dx) 07/23/2024 10:00 AM LEATHER CURRIER Clinical Support [facility] at [address] [place] [phone] Bilateral impacted cerumen (Primary Dx) 07/09/2024 11:30 AM LEATHER CURRIER Office Visit [facility] at [address] [place] [phone] Jesús Perez MD Elevated blood pressure reading [...] Sign Reading Time Taken Comments Blood Pressure 110/60 09/05/2024 12:13 PM CDT Pulse 94 09/05/2024 12:13 PM CDT Temperature 36.5 C (97.7 F) 09/05/2024 12:13 PM CDT Respiratory Rate 18 09/05/2024 12:13 PM CDT Oxygen Saturation 100% 09/05/2024 12:13 PM CDT Inhaled Oxygen Concentration - - Weight 59 kg (130 lb) 09/05/2024 12:13 PM CDT Height 162.6 cm (5' 4 ) 09/05/2024 12:13 PM CDT Body Mass Index 22.31 09/05/2024 12:13 PM CDT Plan of Treatment Health Maintenance Due Date Last Done Comments Breast Cancer Screening-Mammogram 1984 Cervical Cancer Screening 1984 Hepatitis C Screening 1984 Varicella Vaccines (1 of 2 - 13+ 2-dose series) 02/25/1997 Hepatitis B Screening 02/25/2002 Regular Well Visit/Exam 18-64 02/25/2002 Pneumococcal vaccine <65 (1 of 2 - PCV) 02/25/2003 Influenza Vaccine (Season Ended) 2025 Depression Screening 05/15/2025 05/15/2024, 03/11/2024 DTaP/Tdap/Td Vaccine (2 - Td or Tdap) 07/09/2034 07/09/2024 HPV Vaccines Aged Out No longer eligi ble based on patient's age to complete this topic Procedures Procedure Name Priority Date/Time Associated Diagnosis Comments AEROBIC AND ANAEROBIC CULTURE AND GRAM STAIN Routine 09/05/2024 12:36 PM CDT Abscess from Last 3 Months Results * (ABNORMAL) Aerobic and anaerobic culture and gram stain Abscess Shoulder, right (09/05/2024 12:36 PM CDT) Direct Specimen Exam Stain: No polymorphonuclear leukocytes seen. No organisms seen. Comment:Testing performed by : [facility], [address] [place]., [address] Report Final Report: Few Staphylococcus lugdunensis (.) FLAKITA SANDERS Comment:Testing performed by : [facility], [address] [place]., [address] Organism STAPHYLOCOCCUS LUGDUNENSIS FLAKITA Abscess (Shoulder, right) 09/05/2024 12:36 PM CDT 09/05/2024 10:19 PM CDT Narrative FLAKITA - 09/15/2024 11:51 AM CDT Specimen received on an ESwab. Testing performed by [facility] ([phone]) Specimens submitted from normally sterile body sites will have all bacterial morphotypes identified. Specimens that contain grossly mixed mare and/or are from body sites that are not normally sterile will be examined for Staphylococcus aureus, Pseudomonas aeruginosa, beta-hemolytic strep, vancomycin-resistant Enterococcus, Bacteroides, Parabacteroides, Clostridium perfringens and fungus. If any of these are isolated, the organism will be reported. Current interpretive data was last revised on 2019. Organism Antibiotic Method Susceptibility Staphylococcus lugdunensis Doxycycline (KATHY) INTERPRETATION Susceptible Staphylococcus lugdunensis Linezolid (KATHY) INTERPRETATION Susceptible Staphylococcus lugdunensis Trimethoprim with Sulfamethoxazole (KATHY) INTERPRETATION Susceptible Staphylococcus lugdunensis Clindamycin (KATHY) INTERPRETATION Susceptible Staphylococcus lugdunensis Erythromycin (KATHY) INTERPRETATION Susceptible Staphylococcus lugdunensis Vancomycin (KATHY) INTERPRETATION Susceptible Staphylococcus lugdunensis Oxacillin (KATHY) INTERPRETATION Susceptible Staphylococcus lugdunensis Cefazolin (KATHY) INTERPRETATION Susceptible Staphylococcus lugdunensis Ceftriaxone (KATHY) INTERPRETATION Susceptible us Colleen Rodriges [facility] MICROBIOLOGY - GENERAL ORD ERABLES Final Result FLAKITA SANDERS [id number] Department [place] [address] from Last 3 Months Insurance [facility] Care Teams Electric Milkers Installer Relationship Specialty Start Date End Date Jesús Perez MD [address] [address] PCP - General Family Practice 03/11/24
--- OUTSIDE RECORDS SUMMARY | 2024-09-26 11:22 | XMS_ITS | Clinical Summary ---
Author Organization [facility] Address [address] [place] [address] Phone Care Team Providers Care Carver And Checkerer Specials Name Role Phone Provider, None Primary Care Provider Unavailabl e Allergies Active Allergy Reactions Criticality Noted Date Comments Metformin Nausea 07/03/2024 Medications No known medications Encounters Date Type Department Care Team Description 07/03/2024 8:59 AM FILING WRITER - 07/03/2024 11:22 AM FILING WRITER Emergency [facility] Emergency [address] [place] [address] Bethel Richard, ASHLEY Acute exacerbation [...] Comments Blood Pressure 193/95 07/03/2024 8:59 AM FILING WRITER Pulse 92 07/03/2024 8:56 AM FILING WRITER Temperature 35.9 C (96.7 F) 07/03/2024 8:56 AM FILING WRITER Respiratory Rate 16 07/03/2024 8:56 AM FILING WRITER Oxygen Saturation 100% 07/03/2024 8:56 AM FILING WRITER Inhaled Oxygen Concentration - - Weight 59 kg (130 lb) 07/03/2024 8:56 AM FILING WRITER Height 162.6 cm (5' 4 ) 07/03/2024 8:56 AM FILING WRITER Body Mass Index 22.31 07/03/2024 8:56 AM FILING WRITER Plan of Treatment Health Maintenance Due Date [...] OR 3 VIEWS STAT 07/03/2024 10:33 AM FILING WRITER XR HIP 2 VIEWS UNILATERAL RIGHT STAT 07/03/2024 10:28 AM FILING WRITER from Last 3 Months Results * XR LUMBAR SPINE 2 OR 3 VIEWS (07/03/2024 10:33 AM FILING WRITER) Anatomical Region Laterality Modality Spine, L-spine N/A Digital Radiogra phy 07/03/2024 11:1 3 AM FILING WRITER Impressions 07/03/2024 11:15 AM FILING WRITER IMPRESSION: Mild multilevel lumbar spondylosis without definite evidence of acute fracture or subluxation. Narrative 07/03/2024 11:15 AM FILING WRITER EXAM DESCRIPTION: XR LUMBAR SPINE 2 OR [...] Alisa Guerin D.O. PS: PS Report ID: [id number] Reading Location: [id number] Procedure Note Alisa Guerin DO - 07/03/2024 [...] Alisa Guerin D.O. PS: PS Report ID: [id number] Reading Location: [id number] IMPRESSION: Mild multilevel lumbar spondylosis without definite evidence of acute fracture or subluxation. Bethel Richard [facility] IMG DIAGNOSTIC ORDER TOÑO Final Result * XR HIP 2 VIEWS UNILATERAL RIGHT (07/03/2024 10:28 AM FILING WRITER) Anatomical Region Laterality Modality LOWER EXTREMITY, hip Right Digital Rad iography 07/03/2024 11:1 1 AM FILING WRITER Impressions 07/03/2024 11:13 AM FILING WRITER IMPRESSION: Mild degenerative changes of the right hip without definite evidence of acute displaced fracture or dislocation. Narrative 07/03/2024 11:13 AM FILING WRITER EXAM DESCRIPTION: XR HIP 2 VIEWS UNILATERAL [...] Alisa Guerin D.O. PS: GOSIA Report ID: [id number] Reading Location: [id number] Procedure Note Alisa Guerin DO - 07/03/2024 [...] Alisa Guerin D.O. PS: GOSIA Report ID: [id number] Reading Location: [id number] IMPRESSION: Mild degenerative changes of the right hip without definite evidence of acute displaced fracture or dislocation. Bethel Richard PAC IMG DIAGNOSTIC ORDER TOÑO Final Result from Last 3 Months Insurance MEDICAID [place] Care Teams Carver And Checkerer Specials Relationship Specialty Start Date End Date Provider, None [place] PCP - General 08/23/23
--- OUTSIDE RECORDS SUMMARY | 2024-09-26 11:22 | XMS_ITS | Referral Summary ---
Author Organization [facility] [address] Address [address] [place] [address] Care Team Providers Care Consulting Database Administrator Name Role Phone Jesús Perez MD Primary Care Provi dina Encounters Date Type Department Care Team Description 09/10/2024 Patient Self-Triage [facility] HealthCare/ Physicians [address] [place] [address] Mychart, Generic Provider 09/06/2024 Results Follow-Up [facility] Care at [address] [place] [address] Colleen Rodriges NP 09/05/2024 12:36 PM CDT - 09/05/2024 11:59 PM CDT Hospital Encounter [facility] [address] [place] [address] Abscess Discharge Disposition: Discharge to home or self care 09/05/2024 12:15 PM CDT Office Visit [facility] Care at [address] [place] [address] Colleen Rodriges NP Abscess (Primary Dx) 07/23/2024 10:00 AM MICROBIOLOGY INSTRUCTOR Clinical Support [facility] Primary Care at [address] [address] Bilateral impacted cerumen (Primary Dx) 07/09/2024 11:30 AM MICROBIOLOGY INSTRUCTOR Office Visit [facility] Primary Care at [address] [place] [address] Jesús Perez MD Elevated blood pressure reading [...] 09/05/2024 12:13 PM CDT Plan of Treatment Not on file Procedures Procedure Name Priority Date/Time Associated Diagnosis Comments AEROBIC AND ANAEROBIC CULTURE AND GRAM STAIN Routine 09/05/2024 12:36 PM CDT Abscess from Last 3 Months Results * (ABNORMAL) Aerobic and anaerobic culture and gram stain Abscess Shoulder, right (09/05/2024 12:36 PM CDT) Direct Specimen Exam Stain: No polymorphonuclear leukocytes seen. No organisms seen. Comment:Testing performed by : [facility], [address] [facility], [place]., [address] Report Final Report: Few Staphylococcus lugdunensis (.) FLAKITA SANDERS Comment:Testing performed by : [facility], [address] [facility], [place]., [address] Organism STAPHYLOCOCCUS LUGDUNENSIS FLAKITA SANDERS Abscess (Shoulder, right) 09/05/2024 12:36 PM CDT 09/05/2024 10:19 PM CDT Narrative FLAKITA SANDERS - 09/15/2024 11:51 AM CDT Specimen received on an ESwab. Testing performed by [facility] Microbiology Laboratory ([phone]) Specimens submitted from normally sterile body sites [...] Ceftriaxone (KATHY) INTERPRETATION Susceptible us Colleen Rodriges NP LAB MICROBIOLOGY - GENERAL ORD ERABLES Final Result FLAKITA [id number] Department of [place] [address] from Last 3 Months Insurance [facility] Care Teams Consulting Database Administrator Relationship Specialty Start Date End Date Jesús Perez MD [address] [address] PCP - General Family Practice 03/11/24
== END 2024-09-26 11:22 | disposition home or self-care (01) ==
PROVIDERS: Emergency Provider Registered Nurse
DX: J40 Bronchitis, not specified as acute or chronic (principal); I10 Essential (primary) hypertension; F17.210 Nicotine dependence, cigarettes, uncomplicated
CPT/HCPCS: 71046; 99213; G0463

== ENCOUNTER 2024-10-04 13:48 | Emergency (ER) | payer OTHER, SELFPAY ==
--- NOTE | ~2024-10-04 | XR_ITS ---
XR foot RT 2V 10/04/2024 14:15 Indication: Right foot pain Procedure: 2 views right foot Comparison: No prior studies for comparison. Findings: There is anatomic alignment. No fracture, subluxation or dislocation. There is degenerative calcaneal enthesophyte at the plantar surface. Lisfranc joint intact. Impression: 1: No acute bone or joint abnormality. Reviewed, dictated and finalized at location A. Impression: 1: No acute bone or joint abnormality.
[2024-10-04 13:52] VITALS: BP 150/90; PULSE 74; RESP 16; TEMP 36.7; O2SAT 99
--- NOTE | 2024-10-04 14:01 | ED_ITS ---
HPI - General Adult General Chief complaint: Extremity Problem,Nontraumatic Stated complaint: right foot pain Time Seen by Provider: 10/04/24 14:02 Source: patient, RN notes reviewed and old records reviewed Mode of arrival: ambulatory Limitations: no limitations History of Present Illness HPI narrative: 39 year old female who presents to [facility] care with complaints of right heel pain plantar region and radiates down the foot to ball of foot. Patient reports that she has had similar symptoms like this in the past and Tylenol, Ibuprofen, has not provided hr any relief, She has not applied any ice to her foot either. Patient reports that she is on her feet a lot and works 2 jobs. Patient describes pain to heel as sharp at times and then some burning in the plantar aspect of mid foot and ball of foot. Patient wearing supportive non skid shoes. MD complaint: right heel pain radiating to foot plantar aspect Onset (ago): day(s) (3) Location: right and lower extremity Severity scale (1-10): 8 Quality: burning (plantar area) and aching Pain Consistency: intermittent Relieving factors: rest Exacerbating factors: other (weight bearing) Treatments prior to arrival: none Related Data Home Medications ?Medication ?Instructions ?Recorded ?Confirmed ?Last Taken ?Type albuterol sulfate 90 mcg/actuation inhalation 08/16/24 Unknown History aerosol inhaler famotidine 08/16/24 Unknown History fluticasone 100 mcg-salmeterol 50 inhalation 10/04/24 Unknown History mcg/dose blistr powdr for inhalation (Advair Diskus) Allergies Allergy/AdvReac Type Severity Reaction Status Date / Time metformin AdvReac Nausea Verified 10/04/24 13:57 Review of Systems Review of Systems: CONSTITUTIONAL: Denies fever, chills, or sweats. EYES: Denies visual changes, redness, or discharge. ENT: Denies rhinorrhea, congestion, sore throat, or otalgia. CARDIOVASCULAR: Denies chest pain, palpitations, or edema. RESPIRATORY: Denies cough or dyspnea. GASTROINTESTINAL: Denies abdominal pain, nausea, vomiting, or diarrhea. GENITOURINARY: Denies dysuria or hematuria. SKIN: Denies rash or itching. MUSCULOSKELETAL: Denies back pain,positive for right heel pain radiating plantar aspect of foot, or myalgia. NEUROLOGIC: Denies headache, numbness, or weakness. PSYCHIATRIC: Denies anxiety or depression. All systems reviewed & are unremarkable except as noted in HPI and below PMFSH Past Medical History Medical History Tobacco abuse Hidradenitis PCOS (polycystic ovarian syndrome) Bronchitis Hypertension Social History Social History Smoking packs per day: 1 Smoking cigarettes per day: 20.0 Smoking status: Current every day smoker Tobacco type: cigarettes Alcohol intake: current Alcohol use details: social Comments At time of signature, agree with nursing past medical, surgical, social and family history. There is no relevant family history pertinent to the presenting complaint Exam Narrative: GENERAL: Well-appearing, well-nourished, and in no acute distress. HEAD: Normocephalic, atraumatic. EYES: PERRLA and EOMI. ENT: Nares clear, no rhinorrhea or epistaxis. Mucous membranes moist.TM's normal, throat pink without swelling NECK: Supple. no lymphadenopathy CHEST: Clear to auscultation. No respiratory distress. SAO2 99% on room air HEART: Regular rate and rhythm. No murmur heard. Normal peripheral pulses. ABDOMEN: Soft, nontender, nondistended, normal active bowel sounds. EXTREMITIES: Normal range of motion. No edema.pain to right heel region radiating down plantar aspect of foot into ball of foot. strong pedal pulse present, full mobility of right foot SKIN: Warm, dry, no rash. NEURO: No focal deficits. Alert and oriented x3. Course Course Emergency Course: Patient is aware of diagnosis, understands and agrees to treatment plan.? Anticipatory guidance given.? Patient agrees to follow-up as directed and is aware of reasons to seek care at the emergency department. Portions of this record may have been created with voice recognition software Level of Care: Express Care Visit Vital Signs Vital signs: Vital Signs Temperature 36.7 C 10/04/24 13:52 Pulse Rate 74 10/04/24 13:52 Respiratory Rate 16 10/04/24 13:52 Blood Pressure 150/90 H 10/04/24 13:52 Pulse Oximetry 99 10/04/24 13:52 Oxygen Delivery Room Air 10/04/24 13:52 Temperature 36.7 C 10/04/24 13:52 Pulse Rate 74 10/04/24 13:52 Respiratory Rate 16 10/04/24 13:52 Blood Pressure 150/90 H 10/04/24 13:52 Pulse Oximetry 99 10/04/24 13:52 Oxygen Delivery Room Air 10/04/24 13:52 Reviewed Medical Decision Making MDM Narrative Medical decision making narrative: Exam findings and imaging show no acute concerns or changes; patient is non- toxic appearing and is in no distress.? Patient is appropriate for outpatient treatment and follow-up Vital Signs Vital Signs: Vital Signs Temperature 36.7 C 10/04/24 13:52 Pulse Rate 74 10/04/24 13:52 Respiratory Rate 16 10/04/24 13:52 Blood Pressure 150/90 H 10/04/24 13:52 Pulse Oximetry 99 10/04/24 13:52 Oxygen Delivery Room Air 10/04/24 13:52 Temperature 36.7 C 10/04/24 13:52 Pulse Rate 74 10/04/24 13:52 Respiratory Rate 16 10/04/24 13:52 Blood Pressure 150/90 H 10/04/24 13:52 Pulse Oximetry 99 10/04/24 13:52 Oxygen Delivery Room Air 10/04/24 13:52 reviewed Imaging Data Attestation: I personally reviewed and interpreted this imaging study as follows: My impression: no acute bone or joint abnormality, degenerate calcaneal enthesophyte at plantar surface Radiologist's impression: [place] [id number] XRay Report Signed Patient: Margy Jolly : 1985 MR#: [id number] Age: 39 Acct:[id number] Loc: [facility] ADM Date: 10/04/24Attending Dr: Ordering Physician: Kayla Pool APRN Date of Service: 10/04/24 Procedure(s): XR foot RT 2V Accession Number(s): [id number] cc: Kayla Pool APRN; UNKNOWN,DOCTOR~ XR foot RT 2V 10/04/2024 14:15 Indication: Right foot pain Procedure: 2 views right foot Comparison: No prior studies for comparison. Findings: There is anatomic alignment. No fracture, subluxation or dislocation. There is degenerative calcaneal enthesophyte at the plantar surface. Lisfranc joint intact. Impression: 1: No acute bone or joint abnormality. Reviewed, dictated and finalized at location A. Please be advised this is a medical document. It is intended for [id number]-ohvp communication. It is written in medical language and may contain unfamiliar abbreviations or verbiage. Medical documents are intended to carry relevant information, facts as evident, and the clinical opinion of the practitioner at the time of the encounter. This report may have been done utilizing a voice recognition system. Attempts have been made to correct errors. However, there may be uncorrected grammatical, spelling, and recognition errors present. The file time of this note does not necessarily represent the time of service. Dictated By: Eugenio Suero MD 10/04/24 1423 Signed By: <Electronically signed by Eugenio Suero MD in OV> Critical Care Time Critical Care Time Critical Care Time: No Discharge Plan Discharge Clinical Impression: Plantar fasciitis of right foot, Bone spur of foot Patient Disposition: Home Condition: Stable Instructions: Antibiotic Form, Plantar Fasciitis (ED), Plantar Fasciitis Exercises (ED) Additional Instructions: Tylenol for lesser pain Ibuprofen regularly for the next 2-3 days for the inflammation Tylenol arthritis strength 2 tabs in a.m. and 2 tabs in p.m. Naprosyn 500 mg with food twice daily Follow-up with equipment operator intermodal yard per referral by your PCP Follow-up with PCP if further problems or concerns Ice to the area 20-30 minutes 4-6 times a day Elevate above heart Prednisone 20 mg b.i.d. for 5 days Follow-up with your PCP for further evaluation Do exercises as prescribed If your symptoms persist, change or worsen significantly before you can contact your personal physician then please, without delay, go to the emergency department for further evaluation. Follow-up with PCP in 7-10 days or sooner if needed Follow up with PCP soon in regards to your blood pressure which is elevated above threshold for referral. Blood pressure above 120/80 may indicate pre- hypertension. Blood pressure 150/90 Patient Language: Togolese Prescriptions: New prednisone 20 mg tablet 20 mg PO BID Qty: 10 0RF naproxen [Naprosyn] 500 mg tablet 500 mg PO BID PRN (Reason: pain) Qty: 20 0RF No Action prednisone 20 mg tablet 40 mg PO DAILY 5 Days Qty: 10 0RF fluticasone propion-salmeterol [Advair Diskus] 100-50 mcg/dose blister with device INHALATION albuterol sulfate 90 mcg/actuation HFA aerosol inhaler INHALATION famotidine Follow-up/Referrals: UNKNOWN,DOCTOR [Primary Care Provider] - Stand Alone Forms: Work/School Release IP Time of Disposition: 14:36 Quality Joel Coma Scale Eyes: Open Verbal: Oriented and Alert Motor: Follows Commands [place] Coma Total Score: 15
--- OUTSIDE RECORDS SUMMARY | 2024-10-05 14:10 | XMS_ITS | Referral Summary ---
Author Organization [facility] Address [address] [place] [address] Care Team Providers Care Polystyrene Molding Machine Tender Name Role Phone Jesús Perez MD Primary Care Provi dina Encounters Date Type Department Care Team Description 09/10/2024 Patient Self-Triage [facility] HealthCare/ Physicians [address] [place] [address] Mychart, Generic Provider 09/06/2024 Results Follow-Up [facility] Care at [address] [place] [address] Colleen Rodriges NP 09/05/2024 12:36 PM CDT - 09/05/2024 11:59 PM CDT Hospital Encounter [facility] [address] [place] [address] Abscess Discharge Disposition: Discharge to home or self care 09/05/2024 12:15 PM CDT Office Visit [facility] Care at [address] [place] [address] Colleen Rodriges NP Abscess (Primary Dx) 07/23/2024 10:00 AM DIP BRAZIER Clinical Support [facility] Primary Care at [address] [address] Bilateral impacted cerumen (Primary Dx) 07/09/2024 11:30 AM DIP BRAZIER Office Visit [facility] Primary Care at [address] [place] [address] Jesús Perez MD Elevated blood pressure reading [...] No organisms seen. Comment:Testing performed by : [facility], [address] [facility], [place]., [address] Report Final Report: Few Staphylococcus lugdunensis (.) FLAKITA SANDERS Comment:Testing performed by : [facility], [address] [facility], [place]., [address] Organism STAPHYLOCOCCUS LUGDUNENSIS FLAKITA SANDERS Abscess (Shoulder, right) 09/05/2024 12:36 PM CDT 09/05/2024 10:19 PM CDT Narrative FLAKITA SANDERS - 09/15/2024 11:51 AM CDT Specimen received on an ESwab. Testing performed by [facility] Microbiology Laboratory ([phone]) Specimens submitted from normally sterile body sites [...] - GENERAL ORD ERABLES Final Result FLAKITA [id number] Department [place] [address] from Last 3 Months Insurance [facility] Care Teams Polystyrene Molding Machine Tender Relationship Specialty Start Date End Date Jesús Perez MD [address] [address] PCP - General Family Practice 03/11/24
--- OUTSIDE RECORDS SUMMARY | 2024-10-05 14:10 | XMS_ITS | Clinical Summary ---
Author Organization [facility] Address [address] [place] [address] Phone Care Team Providers Care Uptwister Tender Name Role Phone Provider, None Primary Care Provider Unavailabl e Allergies Active Allergy Reactions Criticality Noted Date Comments Metformin Nausea 07/03/2024 Medications No known medications Social History Tobacco Use Types Packs/Day Years [...] Comments Blood Pressure 193/95 07/03/2024 8:59 AM FISH INSPECTOR Pulse 92 07/03/2024 8:56 AM FISH INSPECTOR Temperature 35.9 C (96.7 F) 07/03/2024 8:56 AM FISH INSPECTOR Respiratory Rate 16 07/03/2024 8:56 AM FISH INSPECTOR Oxygen Saturation 100% 07/03/2024 8:56 AM FISH INSPECTOR Inhaled Oxygen Concentration - - Weight 59 kg (130 lb) 07/03/2024 8:56 AM FISH INSPECTOR Height 162.6 cm (5' 4 ) 07/03/2024 8:56 AM FISH INSPECTOR Body Mass Index 22.31 07/03/2024 8:56 AM FISH INSPECTOR Plan of Treatment Health Maintenance Due Date Last Done Comments Hepatitis C Virus (HCV) Screening 1985 Mammogram 1985 TdaP Immunization 1985 Hepatitis B Immunization (1 of 3 - 19+ 3-dose series) 02/25/2003 Pap Smear 02/25/2005 Cervical Cancer Screening (CCS) 02/25/2014 HPV/Cotest 02/25/2014 Influenza Immunization (#1) 2024 SARS-COV-2 Immunization (2023- season) 2024 Discussion re Starting/Frequ ency of [...] patient's age to complete this topic Insurance MEDICAID [place] Care Teams Uptwister Tender Relationship Specialty Start Date End Date Provider, None [place] PCP - General 08/23/23
--- OUTSIDE RECORDS SUMMARY | 2024-10-05 14:10 | XMS_ITS | Clinical Summary ---
Author Organization [address] Address [address] [place] [address] Care Team Providers Care Assistant Offset Press Operator Name Role Phone Jesús Perez MD Primary [...] Department Care Team Description 09/10/2024 Patient Self-Triage [facility] Health[facility] Physicians [address] [place] [address] Mychart, Generic Provider 09/06/2024 Results Follow-Up [facility] Care at [address] [address] Colleen Rodriges NP 09/05/2024 12:36 PM CDT - 09/05/2024 11:59 PM CDT Hospital Encounter [address] [address] Abscess Discharge Disposition: Discharge to home or self care 09/05/2024 12:15 PM CDT Office Visit [facility] Care at [address] [place] [address] Colleen Rodriges, SHANNAN Abscess (Primary Dx) 07/23/2024 10:00 AM KINDERGARTEN TEACHER Clinical Support [facility] Primary Care at [address] [place] [phone] Bilateral impacted cerumen (Primary Dx) 07/09/2024 11:30 AM KINDERGARTEN TEACHER Office Visit [facility] Primary Care at [address] [place] [phone] Jesús Perez MD Elevated blood pressure reading [...] No organisms seen. Comment:Testing performed by : [facility], [address] [place]., [address] Report Final Report: Few Staphylococcus lugdunensis (.) FLAKITA SANDERS Comment:Testing performed by : [facility], [address] [place]., [address] Organism STAPHYLOCOCCUS LUGDUNENSIS [facility] Abscess (Shoulder, right) 09/05/2024 12:36 PM CDT 09/05/2024 10:19 PM CDT Narrative FLAKITA - 09/15/2024 11:51 AM CDT Specimen received on an ESwab. Testing performed by [facility] Microbiology Laboratory ([phone]) Specimens submitted from normally sterile body sites [...] Ceftriaxone (KATHY) INTERPRETATION Susceptible us Colleen Rodriges HOIST WORKER LAB MICROBIOLOGY - GENERAL ORD ERABLES Final Result FLAKITA SANDERS [id number] Department [place] [address] from Last 3 Months Insurance [facility] Care Teams Assistant Offset Press Operator Relationship Specialty Start Date End Date Jesús Perez MD [address] [address] PCP - General Family Practice 03/11/24
== END 2024-10-04 14:45 | disposition home or self-care (01) ==
PROVIDERS: Emergency Provider Registered Nurse
DX: M72.2 Plantar fascial fibromatosis (principal); M77.31 Calcaneal spur, right foot; F17.210 Nicotine dependence, cigarettes, uncomplicated; E28.2 Polycystic ovarian syndrome; I10 Essential (primary) hypertension
CPT/HCPCS: 73620; 99213; G0463

== ENCOUNTER 2024-11-11 08:43 | Emergency (ER) | payer OTHER, SELFPAY ==
--- NOTE | 2024-11-11 08:45 | ED_ITS ---
HPI - Skin/Abscess/Foreign Bdy General Chief complaint: Skin/Abscess/Foreign Body Stated complaint: Boil on Neck Time Seen by Provider: 11/11/24 08:50 Source: patient and RN notes reviewed Mode of arrival: ambulatory Limitations: dementia History of Present Illness HPI narrative: 39-year-old female presents with concern for an abscess on her right neck. She reports she has had a cyst there for many years that never caused her problems and within the last 1 and half weeks it has become inflamed and painful. She reports history of hydradenitis suprativa. Pain she denies fever MD complaint: abscess/boil Related Data Home Medications ?Medication ?Instructions ?Recorded ?Confirmed ?Last Taken ?Type albuterol sulfate 90 mcg/actuation inhalation 08/16/24 Unknown History aerosol inhaler famotidine 08/16/24 Unknown History fluticasone 100 mcg-salmeterol 50 inhalation 10/04/24 Unknown History mcg/dose blistr powdr for inhalation (Advair Diskus) Allergies Allergy/AdvReac Type Severity Reaction Status Date / Time metformin AdvReac Nausea Verified 10/04/24 13:57 Review of Systems Review of Systems: CONSTITUTIONAL: Denies malaise, chills, sweats, or fever. EYES: Denies redness, or discharge. ENT: Denies rhinorrhea, congestion, swollen lips, swollen tongue CARDIOVASCULAR: Denies chest pain, palpitations, or edema. RESPIRATORY: Denies cough or dyspnea. GASTROINTESTINAL: Denies abdominal pain, nausea, vomiting SKIN: Reports a boil on her right neck. Denies purulent drainage, vesicles, bullae, numbness, pain beyond proportion MUSCULOSKELETAL: Denies joint pain or myalgia. NEUROLOGIC: Denies headache. All systems reviewed & are unremarkable except as noted in HPI and below [facility] Past Medical History Medical History Tobacco abuse Hidradenitis PCOS (polycystic ovarian syndrome) Bronchitis Hypertension Social History Social History Smoking packs per day: 1 Smoking cigarettes per day: 20.0 Smoking status: Current every day smoker Tobacco type: cigarettes Alcohol intake: current Alcohol use details: social Comments At time of signature, agree with nursing past medical, surgical, social and family history. There is no relevant family history pertinent to the presenting complaint Exam Narrative: GENERAL: Well-appearing, well-nourished, and in no acute distress. HEAD: Normocephalic, atraumatic. EYES: PERRLA, conjunctivae clear ENT: Mucous membranes moist. NECK: Supple. No lymphadenopathy CHEST: Clear to auscultation. No respiratory distress. HEART: Regular rate and rhythm. SKIN: Warm, dry. Raised, fluctuant erythematous, indurated,, tender, warmth with sharp margins noted right neck. No vesicles, bullae, necrosis, ecchymosis, crepitus noted. NEURO: Alert and oriented x3. PSYCH: Normal mood and affect Course Course Emergency Course: Patient is aware of diagnosis, understands and agrees to treatment plan. Anti cipatory guidance given. Patient agrees to follow-up as directed and is aware of reasons to seek care at the emergency department. Portions of this record may have been created with voice recognition software Level of Care: Express Care Visit Vital Signs Vital signs: Reviewed. Procedures Abscess I/D neck: Date of Incision: 11/11/24 Time of Incision: 09:10 Side (if applicable): right Local Anesthetic: lidocaine 1% Amount of anesthesia used (mL): 2 Technique: needle aspiration Amount of fluid expressed (mL): 6 Irrigation: No Packing used?: none I&D Results: Pus Abcess I&D Additional Comments: Needle aspiration used rather than incision with 11 blade due to the delicate area of the abscess. Because of the delicate area, it was not completely excised, patient was advised to follow-up with her primary care doctor for further treatment of this area. Antibiotic prescribed. MDM - Skin/Abscess/Foreign Bdy MDM Narrative Medical decision making narrative: I evaluated this in the express care. History is obtained from patient who is an independent historian and physical exam was performed.? Available medical records were reviewed. ? Exam findings and relevant testing show no acute concerns or changes; patient is non-toxic appearing and is in no distress. No risk factors or findings concerning for epidural abscess, diskitis, vertebral osteomyelitis, cord compression, cauda equina, vertebral fracture or bone malignancy, AAA, or pyelonephritis. Patient instructed to consider further imaging and workup through their primary care physician as an outpatient if symptoms persist. Does not appear at this time to be erythema multiforme, bullous, SJS, TEN; no evidence at this time to suggest RMSF, NSTI, endocarditis or Lyme disease; patient looks well, nontoxic and is tolerating oral intake; no neurologic signs or symptoms; no headache, photophobia or neck pain; afebrile.? Patient does not have history of of penetrating trauma, laceration, blunt trauma, recent surgery, immunosuppression, malignancy, obesity, alcoholism, corticosteroid use.? D iscussed the importance of follow-up, patient agrees; question, cellulitis versus necrotizing soft tissue infection versus abscess.?? Patient is appropriate for outpatient treatment and follow-up. Critical Care Time Critical Care Time Critical Care Time: No Discharge Plan Discharge Clinical Impression: Abscess Patient Disposition: Home Condition: Stable Instructions: Antibiotic Form, Abscess Incision and Drainage (DC) Additional Instructions: You have had an abscess drained at [facility]. You may shower - let the soapy water clean your wound, do not scrub it. Keep your wound covered to prevent transmission of infection to other people. Use warm compresses every 3-4 hours. Follow up with your primary care physician for a wound check. Go to the Emergency Department immediately if you develop any of the following symptoms: Fevers, Increased redness or swelling around where your abscess was, Increased pain, or Generalized weakness or vomiting Please Keep the wound covered and dry. Once a day: wash the wound with soap/water, apply bacitracin or neosporin and re-cover the wound. If you have any worsening of symptoms, including severe pain/swelling/numbness/changes in sensation/weakness, redness which expands more than it is right now or any other concerns please return to the ED immediately. Patient Language: Turkmen Prescriptions: New clindamycin HCl 300 mg capsule 300 mg PO Q8H 7 Days Qty: 21 0RF No Action fluticasone propion-salmeterol [Advair Diskus] 100-50 mcg/dose blister with device INHALATION albuterol sulfate 90 mcg/actuation HFA aerosol inhaler INHALATION famotidine Follow-up/Referrals: PHYSICIAN NOT ON STAFF,NONSTAFF [Primary Care Provider] - Stand Alone Forms: Work/School Release IP Time of Disposition: 09:21
[2024-11-11 08:48] VITALS: BP 124/72; PULSE 81; RESP 20; TEMP 36.6; O2SAT 100
--- OUTSIDE RECORDS SUMMARY | 2024-11-11 09:07 | XMS_ITS | Clinical Summary ---
Author Organization [facility] Address [address] [place] [address] Phone Care Team Providers Care Retail Merchandising Specialist Name Role Phone Provider, None Primary Care [...] Comments Blood Pressure 193/95 07/03/2024 8:59 AM LIQUOR GRINDER MILL OPERATOR Pulse 92 07/03/2024 8:56 AM LIQUOR GRINDER MILL OPERATOR Temperature 35.9 C (96.7 F) 07/03/2024 8:56 AM LIQUOR GRINDER MILL OPERATOR Respiratory Rate 16 07/03/2024 8:56 AM LIQUOR GRINDER MILL OPERATOR Oxygen Saturation 100% 07/03/2024 8:56 AM LIQUOR GRINDER MILL OPERATOR Inhaled Oxygen Concentration - - Weight 59 kg (130 lb) 07/03/2024 8:56 AM LIQUOR GRINDER MILL OPERATOR Height 162.6 cm (5' 4) 07/03/2024 8:56 AM LIQUOR GRINDER MILL OPERATOR Body Mass Index 22.31 07/03/2024 8:56 AM LIQUOR GRINDER MILL OPERATOR Plan of Treatment Health Maintenance Due Date Last Done Comments Hepatitis C Virus (HCV) Screening 1984 Mammogram 1984 TdaP Immunization 1984 Hepatitis B Immunization (1 of 3 - 19+ 3-dose series) 02/25/2003 Pap Smear 02/25/2005 Cervical Cancer Screening (CCS) 02/25/2014 HPV/Cotest 02/25/2014 SARS-COV-2 Immunization (2023- season) 2024 Discussion re Starting/Frequ ency of Mammograms 2024 Influenza Immunization (Seas on Ended) 2025 Respiratory Syncytial Virus (RSV) Immunization (Adult) (1 - 1-dose 75+ series) 02/25/2059 Human Papillomavirus (HPV) Immunization Aged Out No longer eligible b ased on patient's age to complete this topic Meningococcal Immunization (ACWY) Aged Out No longer eligible based on patient's age to complete this topic Pneumococcal Immunization Combined Aged Out No longer eligible based on patient's age to complete this topic Rotavirus Immunization Aged Out No lo nger eligible based on patient's age to complete this topic Insurance [place]ICAID [place] Care Teams Retail Merchandising Specialist Relationship Specialty Start Date End Date Provider, None [place] PCP - General 08/23/23
--- OUTSIDE RECORDS SUMMARY | 2024-11-11 09:07 | XMS_ITS | Clinical Summary ---
Author Organization [facility] Address [address] [place] [phone] Care Team Providers Care Clerical Order Filler Name Role Phone Jesús Perez MD Primary [...] Department Care Team Description 09/10/2024 Patient Self-Triage [facility] [address] [place] [address] Timo, Quinn Provider 09/06/2024 Results Follow-Up [facility] [place] [address] [place] [address] Colleen Rodriges NP Aerobic and anaerobic culture and gram stain Abscess Shoulder, right 09/05/2024 12:36 PM CDT - 09/05/2024 11:59 PM CDT Hospital Encounter [facility] [address] [place] [address] Abscess Discharge Disposition: Discharge to home or self care 09/05/2024 12:15 PM CDT Office Visit [facility] Medical [facility] [place] [address] [place] [address] Colleen Rodriges NP Abscess (Primary Dx) from Last 3 Months Immunizations Immunization Administration [...] 12:13 PM CDT Height 162.6 cm (5' 4) 09/05/2024 12:13 PM CDT Body Mass Index [...] No organisms seen. Comment:Testing performed by : [facility], [address] [facility] [place]., [address] Report Final Report: Few Staphylococcus lugdunensis (.) FLAKITA SANDERS Comment:Testing performed by : [facility], [address] [facility] [place]., [address] Organism STAPHYLOCOCCUS LUGDUNENSIS FLAKITA Abscess (Shoulder, right) 09/05/2024 12:36 PM CDT 09/05/2024 10:19 PM CDT Narrative FLAKITA SANDERS - 09/15/2024 11:51 AM CDT Specimen received on an ESwab. Testing performed by [facility] Microbiology Laboratory ([phone]) Specimens submitted from normally sterile body sites [...] Oxacillin (KATHY) INTERPRETATION Susceptible Staphylococcus lugdunensis Cefazolin (KATYH) INTERPRETATION Susceptible Staphylococcus lugdunensis Ceftriaxone (KATHY) INTERPRETATION Susceptible us Colleen Rodriges NP LAB MICROBIOLOGY - GENERAL ORD ERABLES Final Result FLAKITA [id number] Department [place] [address] from Last 3 Months Insurance [facility] Care Teams Clerical Order Filler Relationship Specialty Start Date End Date Jesús Perez MD [address] [facility] [address] [place] [address] PCP - General Family Practice 03/11/24
--- OUTSIDE RECORDS SUMMARY | 2024-11-11 09:07 | XMS_ITS | Referral Summary ---
Author Organization [facility] Address [address] [place] [id number] Care Team Providers Care Computerized Mill Recorder Name Role Phone Jesús Perez MD Primary Care Provi dina Encounters Date Type Department Care Team Description 09/10/2024 Patient Self-Triage [facility]/ [facility] [address] [place] [address] Mychart, Generic Provider 09/06/2024 Results Follow-Up [facility] Medical [facility] [address] [place] [address] Colleen Rodriges NP Aerobic and anaerobic culture and gram stain Abscess Shoulder, right 09/05/2024 12:36 PM CDT - 09/05/2024 11:59 PM CDT Hospital Encounter [facility] [address] [place] [address] Abscess Discharge Disposition: Discharge to home or self care 09/05/2024 12:15 PM CDT Office Visit [facility] [place] [address] [place] [address] Colleen Rodriges NP Abscess (Primary Dx) from Last 3 Months Allergies Active Allergy [...] No organisms seen. Comment:Testing performed by : [facility], [address] [place]., [address] Report Final Report: Few Staphylococcus lugdunensis (.) FLAKITA Comment:Testing performed by : [facility], [address] [place]., [address] Organism STAPHYLOCOCCUS LUGDUNENSIS FLAKITA Abscess (Shoulder, right) 09/05/2024 12:36 PM CDT 09/05/2024 10:19 PM CDT Narrative FLAKITA - 09/15/2024 11:51 AM CDT Specimen received on an ESwab. Testing performed by [facility] Microbiology Laboratory ([phone]) Specimens submitted from normally sterile body sites [...] - GENERAL ORD ERABLES Final Result FLAKITA [id number] Department [place] [address] from Last 3 Months Insurance [facility] Care Teams Computerized Mill Recorder Relationship Specialty Start Date End Date Jesús Perez MD [address] [address] PCP - General Family Practice 03/11/24
== END 2024-11-11 09:27 | disposition home or self-care (01) ==
PROVIDERS: Emergency Provider Nurse Practitioner
DX: L02.11 Cutaneous abscess of neck (principal); F17.210 Nicotine dependence, cigarettes, uncomplicated; I10 Essential (primary) hypertension; E28.2 Polycystic ovarian syndrome
CPT/HCPCS: 10060; 87070; 87075; 87205; 99213; G0463; J2003